=== PATIENT | male | born 1940 | race Caucasian/White ===

== ENCOUNTER → 2017-10-12 | Outpatient (CLI) | payer MEDICARE ==
[~2017-10-12] MED LIST: ACE3 PO; ASPI-816; BENZ100C4 PO; CA C1TAB85 PO; KET10 PO; LEVO25TA61 PO; PRA20 PO; SIMV10TA98 PO
--- NOTE | 2017-10-16 20:38 | RT HOLTER TEST ---
FACILITY: [facility] PATIENT NAME: ROSI MESA : [id number] MR: [id number] V: [id number] EXAM DATE: ORDERING PHYSICIAN: JONI HOANG TECHNOLOGIST: MARY Wilkes-jay date: 2017-10-12 10:15:00 Duration: 47:59:00 Test Indications: PALPITATIONS Medications: SEE HOLTER DIARY [id number] QRS complexes 6 Ventricular ectopics which represent <1 % of total QRS comp. 14 Supraventricular ectopics which represent <1 % of total QRS comp. * Paced QRS complexes which represent % of total QRS comp. VENTRICULAR ECTOPY 6 Isolated 0 Bigeminal Cycles 0 Couplets 0 Runs 0 Beats in Runs * Beats LONGEST at * BPM at :: -- * Beats FASTEST at * BPM at :: -- SUPRAVENTRICULAR ECTOPY 14 Isolated 0 Couplets 0 Runs 0 Beats in Runs * Beats LONGEST at * BPM at :: -- * Beats FASTEST at * BPM at :: -- HEART RATES 40 MIN at 00:14:17 2017-10-13 56 AVG 90 MAX at 14:05:02 2017-10-13 LONGEST RR 1.512 secs at 23:41:26 2017-10-12 S-T LEVELS Channel 1 -12.800 mm MIN at 10:15:00 2017-10-12 -12.800 mm MAX at 10:15:00 2017-10-12 Channel 2 -12.800 mm MIN at 10:15:00 2017-10-12 -12.800 mm MAX at 10:15:00 2017-10-12 Channel 3 -12.800 mm MIN at 10:15:00 2017-10-12 -12.800 mm MAX at 10:15:00 2017-10-12 Occasional Premature ventricular complexes and Premature supraventricular complexes Confirmed by ROSI ALVARADO ([id number]) on 10/16/2017 8:37:13 PM Referred By: Overread By: ROSI ALVARADO
== END ==
LOC: RESP 06:44
PROVIDERS: ATTEND Physician Assistant
DX: R00.2 Palpitations (principal); I49.3 Ventricular premature depolarization
CPT/HCPCS: 93225; 93226

== ENCOUNTER → 2017-11-07 | Outpatient (CLI) | payer MEDICARE ==
--- NOTE | 2017-11-09 20:02 | RADIOLOGY IMAGING REPORT ---
FACILITY: [facility] PATIENT NAME: ROSI MESA : [id number] MR: [id number] V: [id number] EXAM DATE: ORDERING PHYSICIAN: [facility] TECHNOLOGIST: Raissa Kirby EXAMINATION:TWO-DIMENSIONAL ECHOCARDIOGRAPH REASON:CAD/HX 4 VESSEL CABG/HX IRREGULAR HEARTBEATS 2D Measurements (normal values in centimeters) LV endLV endRV endVent.LV PostAorticLeftPercent DiastolicSystolicDiastolicSeptumWallRootAtriumShortening (3.5-5.7)(0.9-2.6)(0.6-1.1)(0.6-1.1)(2.0-3.7)(1.9-4.0)(25-35%) [id number]% STROKE VOLUME: 43ml ESTIMATED EJECTION FRACTION:65% PARASTERNAL LONG AXIS: Overall left ventricular systolic function appears to be normal. Chamber sizes also appear to be normal. The aortic valve & mitral valve both appear to open normally. Color examination of the aortic valve was unremarkable. Color examination of the mitral valve revealed a trace of mitral insufficiency. No wall motion abnormalities were noted. Patient appears to be in sinus rhythm. PARASTERNAL SHORT AXIS: Overall left ventricular systolic function again appears to be normal. No specific wall motion abnormalities are noted. Aortic valve is trileaflet in configuration & appears to open normally. There is a trace of pulmonic insufficiency noted. Color examination of the aortic valve was unremarkable. APICAL FOUR AND TWO CHAMBER: Again normal left ventricular systolic function & normal chamber sizes. Aortic valve measured within normal ranges at 2.8cm2. Mitral valve area measured within normal ranges at 2.5cm2. The left atrial & right atrial volumes also measure within normal ranges at 14 & 12ml/m2. Tricuspid regurgitation Vmax measured 1.59m/sec with an estimated right atrial pressure of 3mm Hg giving a total right ventricular pressure within normal ranges at 18mm Hg. No wall motion abnormalities were noted. SUBCOSTAL VIEW: No pericardial effusion was noted. No atrioseptal or ventriculoseptal defects were appreciated. Agitated saline bubble contrast study was done. Doppler examination of the mitral valve in diastole does reveal the A wave > E wave. OVERALL IMPRESSION: 1. Normal left ventricular ejection fraction of approximately 65% with a Grade 1/4 decrease in diastolic function. 2. Normal chamber sizes. No wall motion abnormalities were noted. The patient is in sinus rhythm. No arrhythmias were noted during this echocardiograph. 3. A trileaflet aortic valve with no abnormalities. 4. A trace of mitral, pulmonic & a trace to mild amount of tricuspid insufficiency with estimated right ventricular systolic pressures within normal ranges at 18mm Hg. 5. No atrioseptal or ventriculoseptal defects were noted & an agitated saline bubble contrast study was done. Dictated by: Cathryn Patton M.D. on 11/09/2017 at 10:00 Transcribed by: YARELIS on 11/09/2017 at 14:23 Approved by: Cathryn Patton M.D. on 11/09/2017 at 19:59 [facility]
== END ==
LOC: US 02:32
PROVIDERS: ATTEND Internal Medicine Cardiovascular Disease
DX: I50.30 Unspecified diastolic (congestive) heart failure (principal); I34.0 Nonrheumatic mitral (valve) insufficiency; I37.1 Nonrheumatic pulmonary valve insufficiency; I07.1 Rheumatic tricuspid insufficiency
CPT/HCPCS: 93306